=== PATIENT | female | born 1980 | race Caucasian/White ===

== ENCOUNTER 2020-08-08 17:47 | Outpatient (REF) | payer OTHER, SELFPAY ==
--- NOTE | 2020-08-08 | MR_ITS ---
EXAMINATION: MR BRAIN WITHOUT AND WITH CONTRAST CLINICAL INFORMATION: Demyelinating disease of PAINTER SPRAY. COMPARISON: Brain MRI 05/18/2019. TECHNIQUE: Multiplanar, multisequence imaging of the brain was performed before and after the intravenous administration of 10 mL of Gadavist. FINDINGS: There is no acute infarct, hemorrhage, mass, or extra-axial fluid collection. Minimal nonspecific T2 hyperintensity in the periventricular and left frontal deep white matter is unchanged. The corpus callosum and posterior fossa structures appear normal. No findings seen specific for demyelinating plaques. There is no abnormal intracranial enhancement. The ventricles are normal in size and configuration without evidence of hydrocephalus. The major arterial flow voids are preserved at the skull base. The orbital contents appear normal. The imaged portions of the upper cervical cord appear normal on the T2/FLAIR sequence. IMPRESSION: Stable exam compared with 05/18/2019. No findings identified specific for demyelinating plaques. No enhancing lesions.
== END 2020-08-08 17:48 | disposition home or self-care (01) ==
LOC: HO.MRI 17:47
PROVIDERS: Visit Provider Psychiatry & Neurology Neurology
DX: G37.9 Demyelinating disease of central nervous system, unspecified (principal)
CPT/HCPCS: 70553

== ENCOUNTER 2020-11-25 20:40 | Emergency (ER) | payer OTHER, SELFPAY | END 2020-11-25 21:44 | disposition left against medical advice (07) | LOC: HO.ED 21:44 | PROVIDERS: Emergency Provider Emergency Medicine; PCP Internal Medicine | DX: M54.9 Dorsalgia, unspecified (principal) ==

== ENCOUNTER 2021-07-11 11:18 | Outpatient (REF) | payer OTHER, SELFPAY ==
[2021-07-11 12:04] LABS: COVID-19 Test Negative (Negative)
== END 2021-07-11 11:19 | disposition home or self-care (01) ==
LOC: HO.LAB 11:18
PROVIDERS: PCP Internal Medicine; Visit Provider Internal Medicine
DX: Z20.822 Contact with and (suspected) exposure to COVID-19 (principal)
CPT/HCPCS: 36415; 87635; C9803

== ENCOUNTER 2021-10-16 14:52 | Outpatient (REF) | payer OTHER, SELFPAY | END 2021-10-16 14:53 | disposition home or self-care (01) | LOC: HO.LAB 14:52 | PROVIDERS: PCP Internal Medicine; Visit Provider Internal Medicine | DX: Z20.822 Contact with and (suspected) exposure to COVID-19 (principal) | CPT/HCPCS: C9803; U0003; U0005 ==

== ENCOUNTER 2021-12-22 13:25 | Outpatient (REF) | payer OTHER, MEDICAID, SELFPAY ==
--- NOTE | ~2021-12-22 | MR_ITS ---
MRI OF THE BRAIN WITHOUT IV CONTRAST INDICATION: Demyelinating disease. COMPARISON: Brain MRI 08/08/2020. TECHNIQUE: Multiplanar multisequence MR imaging of the brain was obtained without IV contrast. FINDINGS: There is no hydrocephalus, extra-axial surface collection, or herniation. A few small foci of nonspecific T2 signal change within the supratentorial white matter remain stable. The major flow voids at the skull base are preserved. There is no acute infarct on diffusion-weighted imaging. There is no intracranial hemorrhage on the gradient recalled echo acquisition. The midline structures are normal. The cerebellar tonsils are normally positioned. The cerebellum and brainstem are normal. The craniocervical junction is normal. Osseous marrow signal intensity is homogenous. The visualized soft tissues are unremarkable. MR/MR head/brain wo con IMPRESSION: A few small foci of nonspecific T2 signal change within the supratentorial white matter remain stable. Otherwise unremarkable noncontrast MRI of the brain.
== END 2021-12-22 13:26 | disposition home or self-care (01) ==
LOC: HO.MRI 13:25
PROVIDERS: Visit Provider Psychiatry & Neurology Neurology
DX: G43.909 Migraine, unspecified, not intractable, without status migrainosus (principal); G37.9 Demyelinating disease of central nervous system, unspecified
CPT/HCPCS: 70551

== ENCOUNTER 2024-01-10 09:35 | Emergency (ER) | payer OTHER, SELFPAY ==
--- NOTE | ~2024-01-10 | CT_ITS ---
EXAMINATION: CT ANGIOGRAM ABDOMEN AND PELVIS CLINICAL INFORMATION: 43-year-old female with abdominal pain and history of hematuria (renal blood clot). COMPARISON: Abdomen ultrasound from 10/17/2018. TECHNIQUE: Multiple axial images were obtained through the abdomen and pelvis following the administration of 80 mL of Omnipaque 350 intravenous contrast. The source images and multiplanar reformatted images were reviewed. Also, maximum intensity projection images were generated on the industrial technologist workstation and reviewed. However, no image postprocessing was performed on any separate independent workstations. There are no 3-dimensional images. This CT examination was performed using dose optimization techniques as appropriate, variously including the following: *Automated exposure control *Adjustment of mA and/or kV according to patient size (this includes techniques or standardized protocols for targeted exams where dose is matched to indication/reason for exam; i.e. extremities or head) *Use of iterative reconstruction technique DLP: 631 mGy-cm FINDINGS: LUNG BASES: No pulmonary consolidation or pleural effusion. A few micronodular opacities clustered in the lateral left lower lobe are likely sequela of prior inflammation of the small airways. HEPATOBILIARY: Liver has normal size and contour. There are attenuation differences between the right and left lobes of liver. The right hepatic artery is arising from the SMA whereas the arterial supply to the left lobe of liver appears to be via a branch of the left gastric artery. No evidence of liver mass. Gallbladder surgically absent. No dilated bile ducts. PANCREAS: No edema, pancreatic ductal dilatation or mass. SPLEEN: Normal. ADRENAL GLANDS: Normal. KIDNEYS AND URETERS: The kidneys enhance symmetrically and have normal size and cortical thickness. No perinephric fluid collection, urolithiasis or hydroureteronephrosis. BLADDER: Normal. No calculi or wall thickening. BOWEL AND PERITONEUM: Stomach, small bowel and colon are unremarkable. The appendix is surgically absent. No bowel wall edema or mucosal hyperenhancement. No mesenteric fat stranding, free fluid or free air. ABDOMINAL WALL: Unremarkable. VASCULATURE: Abdominal aorta is normal in caliber. The celiac trunk, SMA and KEVAN are widely patent. There are single right and left renal arteries arising from the aorta that are widely patent. No findings to suggest fibromuscular dysplasia, aneurysm or dissection. The common, external and internal iliac arteries are normal. LYMPH NODES: No pathologic sized lymph nodes in the abdomen or pelvis. No inguinal lymphadenopathy. PELVIC VISCERA: No uterine or adnexal mass. A contraceptive device is well centered within the endometrium. No pelvic free fluid. MUSCULOSKELETAL: No acute or suspicious osseous abnormality. Mild spondylosis of the visualized thoracolumbar spine. There is vacuum disc phenomenon and rorp-ia-[id number] disc space narrowing at L5-S1. CT/CT angio abdomen pelvis IMPRESSION: * No acute imaging abnormalities in the abdomen or pelvis. * Abdominal aorta and renal arteries are normal. * Urinary bladder is normal. * Kidneys are normal. No evidence of nephrolithiasis, hydronephrosis or renal mass.
[2024-01-10 10:06] VITALS: BP 148/91; PULSE 91; RESP 16; TEMP 36.6; O2SAT 98; BMI 39.4
[2024-01-10 10:27] LABS: MANUAL DIFF FLAG NO
[2024-01-10 10:37] LABS: Appearance Urine Cloudy; Color Urine Yellow; Glucose Urine UA Negative (Negative); Leukocyte Esterase Urine Trace (Negative); Nitrite Urine Negative (Negative); PH 6.5 (5.0-9.0); Specific Gravity - Urine 1.025 (1.005-1.025); UMIC TRIGGER UACC YES; Urine Blood Negative (Negative); Urine Ketones Trace mg/dL (Negative); Urine Protein Negative (Neg-Trace)
[2024-01-10 10:48] LABS: Bacteria Urine Trace (None Seen); Basophils Percent Auto 0.4 % (0-2); Eosinophils Absolute Auto 0.1 X10*3/uL (0.0-0.4); Eosinophils Percent Auto 1.5 % (0-4); Hematocrit 42.3 % (37.0-47.0); Hyaline Casts Urine 0-2 /LPF (0-2); Imm Gran Abs Auto 0.03 X10*3/uL (0.00-0.03); Imm Gran Pct Auto 0.4 % (0.0-0.4); Lymphocytes Absolute Auto 1.8 X10*3/uL (1.2-4.9); Lymphocytes Percent Auto 22.4 % (20-40); Mean Corpuscular HGB Conc 33.1 g/dl (31.0-35.0); Mean Corpuscular Hemoglobin 29.7 pg (27.0-33.0); Mean Corpuscular Volume 89.6 fL (80.0-98.0); Mean Platelet Volume 10.6 fL (9.4-12.3); Monocytes Absolute Auto 0.6 X10*3/uL (0.1-1.2); Monocytes Percent Auto 6.7 % (2-11); Neutrophils Absolute Auto 5.6 x10*3/uL (2.0-8.3); Neutrophils Percent Auto 68.6 % (45-73); Platelet Count 214 X10*3/uL (160-400); RBC Urine 0-2 /HPF (0-2); Red Blood Count 4.72 X10*6/uL (4.20-5.50); Red Cell Distribution Width 13.2 % (11.0-16.0); WBC Urine 0-5 /HPF (0-5); White Blood Count 8.2 X10*3/uL (4.8-10.8)
[2024-01-10 10:53] LABS: Alanine Aminotransferase 28 U/L (0-31); Albumin Level 3.7 g/dL (3.5-5.0); Alkaline Phosphatase 79 U/L (39-117); Anion Gap 12 (12-20); Aspartate Amino Transferase 18 U/L (5-31); Bilirubin Direct 0.2 mg/dL (0.0-0.5); Bilirubin Total 0.4 mg/dL (0.0-1.0); Blood Urea Nitrogen 10 mg/dL (9-16); Calcium 9.2 mg/dL (8.4-10.2); Carbon Dioxide 27 mmol/L (22-29); Chloride 109 mmol/L (96-108); Creatinine Clr Calc Pharmacy 108.7; Estimated Glomerular Filt Rate > 60; Glucose Random 99 mg/dL (60-115); Lipase 11 U/L (8-78); Potassium 5.1 mmol/L (3.3-5.1); Sodium 143 mmol/L (135-145); Total Protein 6.6 g/dL (6.5-8.0)
--- NOTE | 2024-01-10 13:07 | ED_ITS ---
HPI - General Adult General Chief complaint: Abdominal Pain Stated complaint: abd pain Time Seen by Provider: 01/10/24 13:04 Source: patient Mode of arrival: ambulatory Limitations: no limitations History of Present Illness HPI narrative: Patient is a 43 year old assigned female at with a history of kidney blood clots and factor 5, presenting to the emergency department today with abdominal pain radiating to her back. Patient states that over the last 3 days she has had epigastric pain that radiates into her back. Patient states that she is concerned it is related to her pancreas or another clot in her kidneys since she is no longer on anti-coagulant medications. Patient denies any dizziness, lightheadedness, nausea, vomiting, fever, chills, blurry vision, double vision, loss of vision, chest pain, difficulty breathing, shortness of breath, night sweats, pain with urination, increased urinary frequency, increased urinary urgency, blood in her urine or stool, syncope or a near syncopal episode, recent trauma or falls, bowel incontinence, bladder incontinence, bowel retention, bladder retention, or any other complaints at this time. Onset (ago): day(s) (3) Location: abdomen Radiation: back Severity: mild Severity scale (1-10): 3 Quality: aching and dull Pain Consistency: constant Relieving factors: none Exacerbating factors: none Associated symptoms: denies other symptoms Treatments prior to arrival: none Related Data Allergies Allergy/AdvReac Type Severity Reaction Status Date / Time dinoprostone [Dinoprostone] AdvReac Mild VOMITING Verified 01/10/24 10:05 Review of Systems 2 Constitutional: Constitutional: Reports no additional constitutional complaints, Denies chills, Denies fever(s) and Denies night sweats Eyes: Eyes: Reports no additional eye complaints, Denies blurry vision, Denies change in vision, Denies diplopia, Denies eye discharge, Denies loss of vision and Denies eye pain ENT: Denies dizziness Cardiovascular: Cardiovascular: Reports no additional cardiovascular complaints, Denies chest pain, Denies lightheadedness, Denies Loss of Consciousness and Denies dyspnea Respiratory: Respiratory: Reports no additional respiratory complaints and Denies dyspnea Gastrointestinal: Gastrointestinal: Reports no additional gastrointestinal complaints, Reports abdominal pain, Denies melena, Denies hematochezia, Denies change in bowel habits and Denies change in stool character Genitourinary: Genitourinary: Denies hematuria, Denies urinary frequency, Denies dysuria, Denies urinary incontinence, Denies urinary hesitancy and Denies urinary urgency Musculoskeletal: Musculoskeletal: Reports no additional musculoskeletal complaints, Reports back pain, Denies numbness and Denies tingling Neurologic: Denies dizziness, Denies loss of vision, Denies numbness and Denies tingling Psychiatric: Psychiatric: Reports no additional psychiatric complaints Endocrine: Endocrine: Reports no additional endocrine complaints Hematologic/Lymphatic: Hematologic/Lymphatic: Reports no additional hematologic/lymphatic complaints Allergic/Immunologic: Allergic/Immunologic: Reports no additional allergic/immunologic complaints FORMERLY [facility], [facility] Past Medical History Attestation statement: The following information was validated with the patient. Source: old records reviewed and nursing notes reviewed Social History Social History Smoked in Last 30 Days: No Use of substances other than those prescribed or required for medical reasons: No Advance Directives: No Advance Directives Information Provided: No Patient : No Physical Exam ED Vital Signs: Vital Signs - 24 hr 01/10/24 10:06 01/10/24 16:09 Temperature 97.8 F 98.1 F Pulse Rate 91 87 Respiratory Rate 16 14 Blood Pressure 148/91 H 120/78 Pulse Oximetry 98 96 Oxygen Delivery Method Room Air Room Air BMI result Body Mass Index 39.4 Const General: cooperative, no acute distress, alert and awake Nutritional Appearance: well nourished Orientation/consciousness: patient oriented x3 Limitations: no limitations HENMT Head: Yes normal to inspection and Yes atraumatic Ears: hearing grossly normal bilaterally and external ears normal General nose exam: Normal external nose present, no nasal discharge noted and no epistaxis Face and sinus: Yes normal facial exam, No abrasion and No laceration Mouth: Normal oral and palatal mucosa present, no drooling and no muffled voice Eyes General: appearance normal, both eyes and all related structures Periorbital: periorbital findings normal Eyelids: Yes eyelids normal Conjunctivae: conjunctivae normal Pupils: Equal, round and reactive pupils present EOM: EOMs intact bilaterally Neck Neck: Yes normal visual inspection, Yes full ROM and Yes no lymphadenopathy Chest Chest palpation & inspection: normal inspection of the chest Resp Effort & Inspection: normal respiratory effort and able to speak in complete sentences GI Inspection: Yes normal to inspection Palpation (GI): Soft to palpation, not firm, nontender, no guarding and not rigid Neuro General: patient oriented x3 and moves all extremities Cranial nerves: Yes Equal, round and reactive pupils present Cognition (Neuro): normal cognition Motor exam (neuro): 5/5 motor strength present throughout Sensory Exam: Normal double simultaneous stimulation for sensation Coordination: [id number] test normal Extrem General: Yes normal to inspection, Yes full ROM and Yes capillary refill normal Psych Appearance: grossly normal Mental Status: mental status grossly normal Affect: normal affect Attitude: cooperative Thought process: Normal thought process present Thought content: Normal thought content present Insight: Good insight present (Psych) Medications Administered Discontinued Medications Generic Name Dose Route Start Last Admin Trade Name Freq PRN Reason Stop Dose Admin Hydromorphone HCl 1 mg 01/10/24 13:11 01/10/24 14:46 Hydromorphone Hcl 1 Mg/Ml Syringe IVPUSH 01/10/24 13:12 1 mg ONCE ONE Administration Protocol Sodium Chloride 1,000 mls @ 999 mls/hr 01/10/24 13:15 01/10/24 15:50 Ns IV 01/10/24 14:15 Infused .Q1H1M CRISTINA Infusion Iohexol 100 ml 01/10/24 14:59 01/10/24 14:59 Iohexol 350 Mg/Ml 100 Ml Infus..Btl IV 01/10/24 15:00 80 ml ONCE ONE Administration Ondansetron HCl 4 mg 01/10/24 13:11 01/10/24 14:46 Ondansetron Hcl 4 Mg/2 Ml Vial IVPUSH 01/10/24 13:12 4 mg ONCE ONE Administration Pantoprazole Sodium 40 mg 01/10/24 13:11 01/10/24 14:45 Pantoprazole Sodium 40 Mg/10 Ml Vial IVPUSH 01/10/24 13:12 40 mg ONCE ONE Administration Medical Decision Making Medical Decision Making MDM Narrative: Patient is a 43 year old assigned female at with a history of factor 5 and kidney blood clots, presenting to the emergency department today with abdominal pain that radiates into the back. Patient's physical exam was unremarkable. Patient's blood work was unremarkable. Patient's urine showed a possible UTI however, the patient is not having symptoms consistent with a UTI. Will await culture before treatment. Patient's CTA abdomen pelvis showed no acute process. I explained my physical exam findings as well as all test results to the patient. I answered all questions asked by the patient. I stressed the importance of the patient taking her medication as prescribed. I stressed the importance of the patient following up with her primary care provider. I stressed the importance of the patient returning to the emergency department immediately if her symptoms were to worsen or if she were to develop any dizziness, shortness of breath, difficulty breathing, chest pain, blurry vision, loss of vision, nausea, vomiting, abdominal pain, fever, chills, back pain, or any other complaints. Patient verbalized agreement and understanding with this treatment plan and discharge. Differential Diagnosis Differential Diagnoses: The differential diagnosis associated with the presentation includes Abdominal pain Pancreatitis Kidney pain Admission/Observation Consideration of admission/observation: Escalation of care including admission/observation considered Patient would have been admitted to the hospital had her work up had any findings where hospital admission was appropriate and her clinical presentation warranted hospital admission. Lab Data [facility] Lab Attestation statement: I reviewed the patient's lab results. My interpretation of these results are in the [facility] Rationale portion of this note. 01/10/24 10:20 01/10/24 10:20 Labs: Lab Results 01/10/24 Range/Units 10:20 WBC 8.2 (4.8-10.8) X10*3/uL RBC 4.72 (4.20-5.50) X10*6/uL Hgb 14.0 (12.0-16.0) g/dl Hct 42.3 (37.0-47.0) % MCV 89.6 (80.0-98.0) fL MCH 29.7 (27.0-33.0) pg MCHC 33.1 (31.0-35.0) g/dl RDW 13.2 (11.0-16.0) % Plt Count 214 (160-400) X10*3/uL MPV 10.6 (9.4-12.3) fL Immature Gran % (Auto) 0.4 (0.0-0.4) % Neut % (Auto) 68.6 (45-73) % Lymph % (Auto) 22.4 (20-40) % Dooly % (Auto) 6.7 (2-11) % Eos % (Auto) 1.5 (0-4) % Baso % (Auto) 0.4 (0-2) % Lymph # (Auto) 1.8 (1.2-4.9) X10*3/uL [place]y # (Auto) 0.6 (0.1-1.2) X10*3/uL Eos # (Auto) 0.1 (0.0-0.4) X10*3/uL Baso # (Auto) 0.0 (0.0-0.2) X10*3/uL Abs Immat Gran (auto) 0.03 (0.00-0.03) X10*3/uL Absolute Neuts (auto) 5.6 (2.0-8.3) x10*3/uL Absolute Nucleated RBC 0.000 (0.0-0.012) X10*3/uL Nucleated RBC % (auto) 0.0 (0.0-0.2) /100WBC Sodium 143 (135-145) mmol/L Potassium 5.1 (3.3-5.1) mmol/L Chloride 109 H (96-108) mmol/L Carbon Dioxide 27 (22-29) mmol/L Anion Gap 12 (12-20) BUN 10 (9-16) mg/dL Creatinine 0.72 (0.5-1.4) mg/dL Estim Creat Clear Calc 108.7 Estimated GFR > 60 Random Glucose 99 (60-115) mg/dL Calcium 9.2 (8.4-10.2) mg/dL Total Bilirubin 0.4 (0.0-1.0) mg/dL Direct Bilirubin 0.2 (0.0-0.5) mg/dL AST 18 (5-31) U/L ALT 28 (0-31) U/L Alkaline Phosphatase 79 (39-117) U/L Total Protein 6.6 (6.5-8.0) g/dL Albumin 3.7 (3.5-5.0) g/dL Lipase 11 (8-78) U/L Urine Color Yellow Urine Appearance Cloudy Urine pH 6.5 (5.0-9.0) Ur Specific Keyser 1.025 (1.005-1.025) Urine Protein Negative (Neg-Trace) mg/dL Urine Glucose (UA) Negative (Negative) mg/dL Urine Ketones Trace (Negative) mg/dL Urine Blood Negative (Negative) Urine Nitrite Negative (Negative) Ur Leukocyte Esterase Trace H (Negative) Urine RBC 0-2 (0-2) /HPF Urine WBC 0-5 (0-5) /HPF Ur Squamous Epith Cells 11-20 (0-2) /HPF Urine Bacteria Trace (None Seen) Hyaline Casts 0-2 (0-2) /LPF Independent Interpretation I performed an independent interpretation of an: CT Scan Interpretation: My interpretation is in agreement with the radiologist's impression of this imaging study. - EXAMINATION: CT ANGIOGRAM ABDOMEN AND PELVIS CLINICAL INFORMATION: 43-year-old female with abdominal pain and history of hematuria (renal blood clot). COMPARISON: Abdomen ultrasound from 10/17/2018. TECHNIQUE: Multiple axial images were obtained through the abdomen and pelvis following the administration of 80 mL of Omnipaque 350 intravenous contrast. The source images and multiplanar reformatted images were reviewed. Also, maximum intensity projection images were generated on the soil technologist workstation and reviewed. However, no image postprocessing was performed on any separate independent workstations. There are no 3-dimensional images. This CT examination was performed using dose optimization techniques as appropriate, variously including the following: *Automated exposure control *Adjustment of mA and/or kV according to patient size (this includes techniques or standardized protocols for targeted exams where dose is matched to indication/reason for exam; i.e. extremities or head) *Use of iterative reconstruction technique DLP: 631 mGy-cm FINDINGS: LUNG BASES: No pulmonary consolidation or pleural effusion. A few micronodular opacities clustered in the lateral left lower lobe are likely sequela of prior inflammation of the small airways. HEPATOBILIARY: Liver has normal size and contour. There are attenuation differences between the right and left lobes of liver. The right hepatic artery is arising from the SMA whereas the arterial supply to the left lobe of liver appears to be via a branch of the left gastric artery. No evidence of liver mass. Gallbladder surgically absent. No dilated bile ducts. PANCREAS: No edema, pancreatic ductal dilatation or mass. SPLEEN: Normal. ADRENAL GLANDS: Normal. KIDNEYS AND URETERS: The kidneys enhance symmetrically and have normal size and cortical thickness. No perinephric fluid collection, urolithiasis or hydroureteronephrosis. BLADDER: Normal. No calculi or wall thickening. BOWEL AND PERITONEUM: Stomach, small bowel and colon are unremarkable. The appendix is surgically absent. No bowel wall edema or mucosal hyperenhancement. No mesenteric fat stranding, free fluid or free air. ABDOMINAL WALL: Unremarkable. VASCULATURE: Abdominal aorta is normal in caliber. The celiac trunk, SMA and KEVAN are widely patent. There are single right and left renal arteries arising from the aorta that are widely patent. No findings to suggest fibromuscular dysplasia, aneurysm or dissection. The common, external and internal iliac arteries are normal. LYMPH NODES: No pathologic sized lymph nodes in the abdomen or pelvis. No inguinal lymphadenopathy. PELVIC VISCERA: No uterine or adnexal mass. A contraceptive device is well centered within the endometrium. No pelvic free fluid. MUSCULOSKELETAL: No acute or suspicious osseous abnormality. Mild spondylosis of the visualized thoracolumbar spine. There is vacuum disc phenomenon and [id number] disc space narrowing at L5-S1. CT/CT angio abdomen pelvis IMPRESSION: * No acute imaging abnormalities in the abdomen or pelvis. * Abdominal aorta and renal arteries are normal. * Urinary bladder is normal. * Kidneys are normal. No evidence of nephrolithiasis, hydronephrosis or renal mass. Dictated By: Sarthak Miranda MD Signed By: Electronically signed by Sarthak Miranda MD 01/10/24 [id number] Radiology Impression Discussion of test interpretation with radiology: I have reviewed the radiologist's reading. Critical Care Time Critical Care Time Critical Care Time: Yes Total Critical Care Time: 45 Attestation: I spent 45 minutes of Critical Care Time with this patient. This does not include time spent on separately reported billable procedures. Discharge Plan Discharge Clinical Impression: Abdominal pain Patient Disposition: Home, Self-Care Instructions: Abdominal Pain (ED) Additional Instructions: Follow up with your primary care provider and your GI specialist. Return to the emergency department immediately if your symptoms worsen or if you develop any dizziness, shortness of breath, difficulty breathing, chest pain, blurry vision, loss of vision, nausea, vomiting, abdominal pain, fever, chills, back pain, or any other complaints. Referrals: Nora Gomze MD [Primary Care Provider] - Stand Alone Forms: Work/School Release Interventions: ED Discharge Assessment Last Done: 01/10/24 16:42 Print Language: Maori
[2024-01-10] MEDS: Pantoprazole Sodium 40 MG/10 ML VIAL IVPUSH (14:45)
[2024-01-10] MEDS: HYDROmorphone HCl 1 MG/ML SYRINGE IVPUSH (14:46)
[2024-01-10] MEDS: ondansetron HCL 4 MG/2 ML VIAL IVPUSH (14:46)
[2024-01-10] MEDS: 0.9 % Sodium Chloride 1,000 ML 999 ML IV (14:47)
[2024-01-10] MEDS: iohexoL 350 MG/ML 100 ML INFUS..BTL IV (14:59)
[2024-01-10 16:09] VITALS: BP 120/78; PULSE 87; RESP 14; TEMP 36.7; O2SAT 96
== END 2024-01-10 16:43 | disposition home or self-care (01) ==
PROVIDERS: Emergency Provider Emergency Medicine; PCP Internal Medicine
DX: R10.9 Unspecified abdominal pain (principal); D68.51 Activated protein C resistance; Z86.718 Personal history of other venous thrombosis and embolism
CPT/HCPCS: 36415; 74174; 80048; 80076; 81001; 83690; 85025; 96361; 96374; 96375; 99284; C9113; J1170; J2405; Q9967

== ENCOUNTER 2024-03-14 13:24 | Outpatient (REF) | payer OTHER, SELFPAY ==
--- NOTE | 2024-03-14 12:51 | EEG_ITS ---
FINDINGS: Waking background activity consists of low-voltage fast frequencies seen diffusely intermixed with low to moderate voltage posterior 10 hertz alpha frequency that is seen symmetrically and attenuates well with eye opening. Photic stimulation and hyperventilation are without activation. No sleep stages are identified. No focal, lateralizing, or paroxysmal discharges seen. IMPRESSION: This waking EEG is within normal limits. MD GRACIE Locke/BRO / [id number]
== END 2024-03-14 13:25 | disposition home or self-care (01) ==
LOC: HO.NEURO 13:24
PROVIDERS: PCP Internal Medicine; Visit Provider Psychiatry & Neurology Neurology
DX: G40.209 Localization-related (focal) (partial) symptomatic epilepsy and epileptic syndromes with complex partial seizures, not intractable, without status epilepticus (principal)
CPT/HCPCS: 95816

== ENCOUNTER 2025-05-14 08:43 | Outpatient (AMB) | payer OTHER, SELFPAY ==
--- OUTSIDE RECORDS SUMMARY | 2025-05-14 08:48 | XMS_ITS | Clinical Summary ---
Author Organization [facility] Address [address] [place] [id number] Care Team Providers Care Cell Tender Name Role Phone Nora Gomez MD Primary Care Provider [phone] Allergies No known active allergies Medications Medication Sig Dispensed Refills Start Date End Date Status escitalopram (LEXAPRO) 20 MG tablet Take 20 mg by mouth daily. 0 Active lisinopril (PRINIVIL,ZESTRIL) tablet 10 mg Take 10 mg by mouth daily. 0 Active omeprazole (PriLOSEC) 20 MG capsule Take 20 mg by mouth daily. 0 Active levonorgestrel (MIRENA) 20 MCG/24HR IUD 1 each by Intrauterine route once. 0 Active apixaban (Eliquis) 5 MG TABS tablet Take 1 tablet (5 mg total) by mouth every 12 (twelve) hours. 60 tablet 11 12/02/2021 Active Active Problems No known active problems Family History Medical History Relation Name Comments Clotting disorder Brother 1 Clotting disorder Brother 2 Clotting disorder Mother Relation Name Status Comments Brother 1 Brother 2 Mother Social History Tobacco Use Types Packs/Day Years Used Date Smoking Tobacco: Never Smokeless Tobacco: Never Alcohol Use Standard Drinks/Week Comments No 0 (1 standard drink = 0.6 oz pur e alcohol) Sex and Gender Information Value Date Recorded Sex Assigned at Not on file Gender Identity Not on file Sexual Orientation Not on file Job Start Date Occupation Industry Not on file Not on file Not on file Last Filed Vital Signs Vital Sign Reading Time Taken Comments Blood Pressure 143/85 11/24/2022 9:57 AM EST Pulse 85 11/24/2022 9:57 AM EST Temperature 36.9 C (98.5 F) 11/24/2022 9:57 AM EST Respiratory Rate - - Oxygen Saturation 98% 11/24/2022 9:57 AM EST Inhaled Oxygen Concentration - - Weight 100.2 kg (221 lb) 11/24/2022 9:57 AM EST Height 157.5 cm (5' 2 ) 11/24/2022 9:57 AM EST Body Mass Index 40.42 11/24/2022 9:57 AM EST Plan of Treatment Health Maintenance Due Date Last Done Comments Hepatitis B Vaccines (1 of 3 - 3-dose series) 1979 Hepatitis C Screening 1979 Depression Screening 1991 BMI Counseling 1997 Preventative Health Evaluation 1997 Cervical Cancer Screening (Pap Smear) 2000 COVID-19 Vaccine ( season) 2024 11/27/2020, 11/06/2020 Colon Cancer Screening (Colonoscopy) 2024 Influenza Vaccine (#1) 2025 , 07/28/2020, 08/08/2018, Additional history exists DTap / Tdap / Td (4 - Td or Tdap) 09/13/2027 09/13/2017, 05/05/2017, 05/05/2007 Pneumococcal Vaccine Aged Out No long er eligible based on patient's age to complete this topic RSV Ped < 20 months Aged Out No longe r eligible based on patient's age to complete this topic Insurance Payer Benefit Plan / Group Subscriber ID Effective Dates Phone Address [facility] [id number] 2017-Pres ent [address] [facility] [address] [place] [address] [facility] [place] [facility] MEDICAID [facility] [id number] 2018-Pres e nt [address] [place] [address] Medicaid Care Teams Cell Tender Relationship Specialty Start Date End Date Nora Gomez MD PCP - General Internal Medicine 05/26/18
--- OUTSIDE RECORDS SUMMARY | 2025-05-14 08:48 | XMS_ITS | Clinical Summary ---
Author Organization [address] Address [address] [place] [phone] Phone Care Team Providers Care Supervisor [employer] Name Role Phone Nora Gomez MD Primary Care Provider [phone] Allergies Active Allergy Reactions Criticality Noted Date Comments Dinoprostone Swelling 05/17/2006 Medications cloNIDine (CATAPRES) 0.1 mg tablet Take 0.5 tablets (0.05 mg total) by mouth. 024 Active levonorgestreL (MIRENA) 21 mcg/24 hours (8 yrs) 52 mg IUD 1 Device (1 each total) by intrauterine route. Active Wegovy 0.25 mg/0.5 mL injection pen PINA CERDA 025 Active albuterol HFA (PROAIR HFA ; PROVENTIL HFA ; VENTOLIN HFA) 90 mcg/actuation inhaler INHALE 2 PUFFS EVERY 4 TO 6 HOURS NEEDED FOR SHORTNESS OF BREATH OR FOR WHEEZE 025 Active omeprazole (PriLOSEC) [address] capsule Take 1 capsule (20 mg total) by mouth 1 (one) time each day before breakfast. 90 capsule 1 025 Active escitalopram (LEXAPRO) 20 mg tablet Take 1 tablet (20 mg total) by mouth 1 (one) time each day. 90 tablet 1 025 Active lisinopriL (PRINIVIL,ZESTRIL ) 5 mg tablet Take 1 tablet (5 mg total) by mouth at bedtime. 90 tablet 1 Active atorvastatin (LIPITOR) 10 mg tablet Take 1 tablet (10 mg total) by mouth 1 (one) time each day. 90 each 1 025 2024 Active apixaban (ELIQUIS) 2.5 mg tablet Take 1 tablet (2.5 mg total) by mouth 2 (two) times a day. 60 tablet 3 Active apixaban (ELIQUIS) 5 mg tablet Take 1 tablet (5 mg total) by mouth 2 (two) times a day. 2024 Discontinued omeprazole (PriLOSEC) [address] capsule Take 1 capsule (20 mg total) by mouth 1 (one) time each day before breakfast. 90 capsule 025 2024 Discontinued(R eorder) ondansetron ODT (ZOFRAN-ODT) 4 mg disintegrating tablet Take 1 tablet (4 mg total) by mouth every 6 (six) hours if needed. for nausea; SAMI MULTANI 025 2024 Discontinued escitalopram (LEXAPRO) 20 mg tablet Take 1 tablet (20 mg total) by mouth 1 (one) time each day. 90 tablet 025 2024 Discontinued(R eorder) lisinopriL (PRINIVIL,ZESTRIL ) 5 mg tablet Take 1 tablet (5 mg total) by mouth at bedtime. 90 tablet 025 2024 Discontinued(R eorder) Active Problems Problem Noted Date Diagnosed Date Other hyperlipidemia 05/01/2025 Anxiety and depression 02/22/2025 Bilateral carpal tunnel syndrome 07/10/2022 Overview (04/18/2025): Last Assessment & Plan: Patient is describing bilateral forearm and first through third digit numbness tingling, aching that wakes her up at night, equally bilaterally. She states it happens every night, does not have any previous diagnosis for carpal tunnel syndrome. She has not had any conservative treatments for this. No recent EMG/NCS study. She thinks she may have a wrist splint at home from the past, will try using it at night while sleeping to see if it improves her symptoms. Patient's neurologist is Dr. Fernandez. We will schedule the EMG through his office to rule out bilateral carpal tunnel syndrome. I am sending her to PT for her neck and carpal tunnel symptoms. I will call her with the results once EMG completed. Cervical spondylosis 07/10/2022 Overview (04/18/2025): Patient is s/p C5-6, C6-[address] Forte 02/04/2017 and s/p left C7-T1 microforaminotomies discectomy June [address] Ballesteros. She states approximately 1 month ago she began noticing pain in the posterior neck, pain in the left lower intrascapular region, right lateral neck. She has pain radiating to the right shoulder down the arm >into the first through third digits. She has not been dropping things, noticing any weakness, difficulty with walking or balance/falls. There is no inciting event, symptoms have slowly been worsening with time. She rates her average daily pain 3-7/10 for her neck and right arm pain. No radicular pain from the neck down into the left arm. She also has history of left trigeminal neuralgia, symptoms are mild, she had to come off Trileptal when she started Eliquis for her renal thrombosis. Patient has not had any recent cervical films, she will go today for C-spine x- rays. I gave her a prescription to try physical therapy. If she is not seeing improvement with time she will likely need an updated C-spine MRI. I will call her with the results once completed. She will call with any concerns or questions. All questions answered on today's visit. Chronic low back pain 07/02/2022 Overview (04/18/2025): Receiving cortisone injection via Dr. 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 Singleton, 12/30/21) COVID-19 virus infection 10/04/2020 Essential hypertension 08/14/2020 Demyelinating disease of guru tral nervous system, unspecified ([facility] V24, [facility] V28) 08/12/2020 Optic neuritis 05/10/2019 Venous insufficiency of both lower extremities 0 02/09/2019 Prothrombin gene mutation ([facility] V24) 08/17/20 18 Overview (04/18/2025): . s/p left renal vein thrombosis; continue Eliquis 5mg BID x 6 months, then 2.5mg BID indefinitely (Dr. Singleton, 12/30/21) Snoring 07/13/2018 Overview (04/18/2025): 07/2018 Home Sleep Study did not reveal sleep apnea. Cervical disc herniation 05/12/2018 Overview (04/18/2025): January 2017: C5/C6 and C6/C7 fusion (Dr. Forte) GERD (gastroesophageal reflux disease) 4 Abnormal Papanicolaou smear of cervix with positive human papilloma virus (HPV) test 04/23/2014 Overview (04/18/2025): Colposcopy 05/11/14 - ECC - neg; Cx Bx @ 6 - no dysplasia, repeat co-testing 12 months. Depression, major, recurrent ([facility] V24) 01/26 Migraine 05/25/2006 Overview (04/18/2025): Dr. Fernandez Other chronic sinusitis 05/25/2006 Resolved Problems Problem Noted Date Diagnosed Date Resolved Date Numbness 11/21/2018 05/01/2025 Overview (04/18/2025): Left sided body numbness, sees neurology Encounters Date Type Department Care Team Description 05/07/2025 10:31 AM EDT - 05/07/2025 11:59 PM EDT Hospital Encounter Radiology Department - [address] [phone] Vision loss of left eye; TIA (transient ischemic attack) Discharge Disposition: Home or Self Care 05/02/2025 Telephone [facility] Hematology Oncology [address] [place] [address] Lina Singleton MD 05/01/2025 8:45 AM EDT Office Visit Adult Medicine [address] [phone] Nora Gomez MD Vision loss of left eye (Primary Dx); Essential hypertension; TIA (transient ischemic attack); Prothrombin gene mutation (CMS/HCC V24); Demyelinating disease of central nervous system, unspecified (CMS/HCC V24, CMS/HCC V28); Other hyperlipidemia 02/23/2025 Telephone Adult Medicine [address] [phone] Nora Gomez MD EXTERNAL ORDER (ECHO) 02/21/2025 Telephone [facility] [address] [place] [phone] Nora Gomez MD from Last 3 Months Immunizations Name Administration Dates Next Due Influenza trivalent, with pr eservative (Fluzone; Afluria) 6mo and older 09/10/2021,07/28/2020,10/12/2017 [employer] SARS-CoV-2 COVID-19, mRNA, LNP-S, preservative free 11/27/2020,11/06/2020 Tdap Tetanus diptheria acell ular pertussis (Boostrix; Adacel) 7yo and older 09/13/2017,05/05/2017,05/05/2007 Surgical History Surgery Date Site/Laterality Comments OTHER SURGICAL HISTORY EXCISION NASAL POLYP SIMPLE SINUS SURGERY CERVICAL LAMINECTOMY 02/04/2017 C5-6, C6-7 ACDF, Dr. Forte CHOLECYSTECTOMY 11/26/2018 APPENDECTOMY OTHER SURGICAL HISTORY 06/2020 Left C7-T1 microforaminotomies discectomy, Dr. Ballesteros COLONOSCOPY 01/2024 Medical History Medical History Date Comments Other chronic sinusitis Abnormal cervical Pap smear with positive HPV DNA test 04/23/2014 GERD (gastroesophageal reflux disease) 4 Factor V deficiency ([facility] V24, [facility] V28) 08/17/2018 Asymptomatic, her brother wa s also labeled with the coagulopathy. Gallstones 10/19/2018 Anxiety 05/25/2006 Cervical disc herniation 02/04/2017 : C5-6, C6-7 anterior discectomy and fusion (Dr. Forte) Depression, major, recurrent ([facility] V24) 01/26/2014 Migraine 05/25/2006 Dr. Fernandez Obesity (BMI 30-39.9) 01/21/2018 Snoring 07/13/201807/2018 Home Slee p Study did not reveal sleep apnea. 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, [facility] V28) 12/23/2020 : x2, Left, on eliquis HTN (hypertension) Trigeminal neuralgia left Family history of ovarian cancer 05/03/2024 : Pt BRCA negative Family History Medical History Relation Name Comments Diabetes Aunt 1 maternal stroke (50s) Ovarian cancer Aunt 2 paternal Diabetes Brother x 2 HTN, HLD, DVT d /t factor V mutation Heart attack Father Hypertension Mother heart valve rep lacement, factor V mutation, COPD Breast cancer Mother's side 1 1st cousin unilateral Other: Thyroid cancer Mother's side 2 1st cousin Relation Name Status Comments Aunt 1 maternal Alive Aunt 2 paternal Alive Brother x 2 Alive Father Maternal Grandfather Maternal Grandmother Mother Alive Mother's side 1 1st cousin Alive Mother's side 2 1st cousin Alive Paternal Grandfather Paternal Grandmother Social History Tobacco Use Types Packs/Day Years Used Date Smoking Tobacco: Never Smokeless Tobacco: Never Tobacco Cessation:Counseling Given: Not Answered Alcohol Use Standard Drinks/Week Comments Yes 0 (1 standard drink = 0.6 oz pur e alcohol) Comments Unknown Sex and Gender Information Value Date Recorded Sex Assigned at Female 05/09/2025 10:42 AM EDT Legal Sex Female 4:01 PM EST Gender Identity Female 05/09/2025 10:42 AM EDT Sexual Orientation Straight 05/09/2025 10 :42 AM EDT Obstetrics History Last Filed Vital Signs Vital Sign Reading Time Taken Comments Blood Pressure 126/84 05/01/2025 8:51 AM EDT Pulse 93 05/01/2025 8:26 AM EDT Temperature 35.8 C (96.5 F) 05/01/2025 8:26 AM EDT Respiratory Rate 16 05/01/2025 8:26 AM EDT Oxygen Saturation 100% 12/04/2024 9:37 AM EST Inhaled Oxygen Concentration - - Weight 95.7 kg (211 lb) 05/01/2025 8:26 AM EDT Height 157.5 cm (5' 2 ) 05/01/2025 8:26 AM EDT Body Mass Index 38.59 05/01/2025 8:26 AM EDT Plan of Treatment Upcoming Encounters Date Type Department Care Team (Late st Contact Info) Description 05/31/2025 5:00 PM EDT Appointment [facility] CT Scan [address] [place] [phone] 11/05/2025 9:30 AM EST Office Visit Adult Medicine [facility] [address] [place] [phone] Krissy Del Toro PA [address] [place] [address] Health Maintenance Due Date Last Done Comments Hepatitis B Vaccines (1 of 3 - 19+ 3-dose series) 1998 Depression Screening 10/10/2022 Hepatitis C Screening 10/10/2022 Social Influencers of Health Screening 10/10/2022 COVID-19 Vaccine (3 - 2023-2 5 season) 2024 11/27/2020, 11/06/2020 Colorectal Cancer Screening: Colonoscopy 01/31/2025 02/01/2024 Influenza Vaccine (#1) 2025 , 07/28/2020, 10/12/2017 Hypertension/CHF/CAD Annual BMP Blood Test 03/12/2026 03/12/2025 Cervical Cancer Screening: P ap Smear 11/09/2026 11/09/2023, 11/09/2023, 05/09/2019 Breast Cancer Screening 01/11/2027 01/11/2025 DTaP,Tdap,and Td Vaccines (4 - Td or Tdap) 09/13/2027 09/13/2017, 05/05/2017, 05/05/2007 Cholesterol Screening (Lipid Panel) 03/12/2030 03/12/2025, 04/28/2023 HIV Screening Completed 04/28/2023 HIB Vaccines Aged Out No longer eligi ble based on patient's age to complete this topic HPV Vaccines Aged Out No longer eligi ble based on patient's age to complete this topic Hepatitis A Vaccines Aged Out No long er eligible based on patient's age to complete this topic IPV Vaccines Aged Out No longer eligi ble based on patient's age to complete this topic MMR Vaccines Aged Out No longer eligi ble based on patient's age to complete this topic Meningococcal ACWY Vaccine Aged Out N o longer eligible based on patient's age to complete this topic Meningococcal B Vaccine Aged Out No l onger eligible based on patient's age to complete this topic Pneumococcal Vaccine: Pediatrics (0 to 5 Years) and At-Risk Patients (6 to 49 Years) Aged Out No longer eligible b ased on patient's age to complete this topic RSV Immunization Patients Under 20 months Aged Out No longer eligible b ased on patient's age to complete this topic Varicella Vaccines Aged Out No longer eligible based on patient's age to complete this topic Procedures Procedure Name Priority Date/Time Associated Diagnosis Comments VAS US DUPLEX CAROTID BILATERAL Routine 05/07/2025 10:51 AM EDT Vision loss of left eye TIA (transient ischemic attack) ECHO 04/19/2025 CBC WITH AUTO DIFFERENTIAL Routine 03/12/2025 1:15 PM EDT Gastroesophageal reflux disease, unspecified whether esophagitis present Essential hypertension Severe episode of recurrent major depressive disorder, without psychotic features (CMS/HCC V24, CMS/HCC V28) Colon cancer screening Elevated random blood glucose level HEMOGLOBIN A1C Routine 03/12/2025 1:15 PM EDT Elevated random blood glucose level CBC AND DIFFERENTIAL Routine 03/12/2025 1:15 PM EDT Gastroesophageal reflux disease, unspecified whether esophagitis present Essential hypertension Severe episode of recurrent major depressive disorder, without psychotic features (CMS/HCC V24, CMS/HCC V28) Colon cancer screening Elevated random blood glucose level COMPREHENSIVE METABOLIC PANEL Routine 03/12/2025 1:15 PM EDT Gastroesophageal reflux disease, unspecified whether esophagitis present Essential hypertension Severe episode of recurrent major depressive disorder, without psychotic features (CMS/HCC V24, CMS/HCC V28) Colon cancer screening Elevated random blood glucose level LIPID PANEL WITH REFLEX TO DIRECT LDL Routine 03/12/2025 1:15 PM EDT Lipid screening EXTERNAL MAMMOGRAM REPORT 01/11/2025 PAP SMEAR Routine 11/09/2023 from Last 3 Months or Most Recently Relevant to Health Maintenance Results * Vascular US duplex carotid bilateral (05/07/2025 10:51 AM EDT) Anatomical Region Laterality Modality Vascular, Abdomen Ultrasound 05/07/2025 4:23 PM EDT Impressions 05/07/2025 4:40 PM EDT Elevated ICA end diastolic velocity on the left without additional abnormal parameters to indicate a moderate degree of stenosis. Recommend CTA for further evaluation. No evidence of right internal carotid stenosis. Patent vertebral arteries. POS - [id number] -------- FINAL REPORT -------- Dictated By: Clau San Dictated Date: 05/07/2025 16:23 ET Assigned Physician: Clau San Reviewed and Electronically Signed By: Clau San Signed Date: 05/07/2025 16:40 ET Workstation ID: [id number] Transcribed By: Self Edit Transcribed Date: 05/07/2025 16:23 ET Narrative 05/07/2025 4:40 PM EDT EXAM: Ultrasound extracranial arteries. HISTORY: TIA. Episode of vision loss in left eye. COMPARISON: None CAROTID ULTRASOUND FINDINGS: RIGHT: Peak external carotid artery: 125 cm/sec Peak vertebral: 77 cm/sec and antegrade Carotid artery morphology: No plaquing detected. No diameter reduction with grayscale and color Doppler. Peak systolic and diastolic velocity common carotid artery: 123/33 cm/sec Peak systolic and diastolic velocity internal carotid artery: 130/39 cm/sec Normal ICA/CCA peak systolic ratio. LEFT: Peak external carotid artery: 80 cm/sec Peak vertebral: 66 cm/sec and antegrade Carotid artery morphology: No plaquing detected. No diameter reduction with grayscale and color Doppler. Peak systolic and diastolic velocity common carotid artery: 138/33 cm/sec Peak systolic and diastolic velocity internal carotid artery: 131/79 cm/sec Normal ICA/CCA peak systolic ratio. Any stenosis measurement is relative to the distal ICA diameters. Procedure Note Clau San MD - 05/07/2025 EXAM: Ultrasound extracranial arteries. HISTORY: TIA. Episode of vision loss in left eye. COMPARISON: None CAROTID ULTRASOUND FINDINGS: RIGHT: Peak external carotid artery: 125 cm/sec Peak vertebral: 77 cm/sec and antegrade Carotid artery morphology: No plaquing detected. No diameter reductionwith grayscale and color Doppler. Peak systolic and diastolic velocity common carotid artery: 123/33cm/sec Peak systolic and diastolic velocity internal carotid artery: 130/39cm/sec Normal ICA/CCA peak systolic ratio. LEFT: Peak external carotid artery: 80 cm/sec Peak vertebral: 66 cm/sec and antegrade Carotid artery morphology: No plaquing detected. No diameter reductionwith grayscale and color Doppler. Peak systolic and diastolic velocity common carotid artery: 138/33cm/sec Peak systolic and diastolic velocity internal carotid artery: 131/79cm/sec Normal ICA/CCA peak systolic ratio. Any stenosis measurement is relative to the distal ICA diameters. IMPRESSION: Elevated ICA end diastolic velocity on the left without additionalabnormal parameters to indicate a moderate degree of stenosis. RecommendCTA for further evaluation. No evidence of right internal carotidstenosis. Patent vertebral arteries. POS - [id number] -------- FINAL REPORT -------- Dictated By: Clau San Dictated Date: 05/07/2025 16:23 ET Assigned Physician: Clau San Reviewed and Electronically Signed By: Clau San Signed Date: 05/07/2025 16:40 ET Workstation ID: [id number] Transcribed By: Self Edit Transcribed Date: 05/07/2025 16:23 ET us Nora Gomez MD CV VASCULAR PROCEDURES Final Res ult * Echo (04/19/2025) Anatomical Region Laterality Modality Other us Provider [facility] CV HISTORICAL CONV PROCE DURES Final Result * (ABNORMAL) Lipid panel with reflex to direct LDL (03/12/2025 1:15 PM EDT) Cholesterol 208(H) 0 - 200 mg/dL LAB CHEMISTRY METHOD 03/12/2025 6:15 PM EDT [facility] Triglycerides 117 0 - 150 mg/dL LAB CHEMISTRY METHOD 03/12/2025 6:15 PM EDT [facility] HDL 58 >=40 mg/dL LAB CHEMISTRY METHOD 03/12/2025 6:15 PM EDT [facility] LDL Calculated 127(H) 0 - 100 mg/dL LAB CHEMISTRY METHOD 03/12/2025 6:15 PM EDT [facility] VLDL Cholesterol Sergio 23.4 mg/dL LAB CHEMISTRY METHOD 03/12/2025 6:15 PM EDT [facility] Non HDL Chol. (LDL+VLDL) 150(H) <145 mg/dL LAB CHEMISTRY METHOD 03/12/2025 6:15 PM EDT [facility] Chol/HDL Ratio 3.6 0.0 - 4.4 LAB CHEMISTRY METHOD 03/12/2025 6:15 PM EDT [facility] Blood Venous blood specimen / Unknown Venipuncture / Unknown 03/12/2025 1:15 PM EDT 03/12/2025 1:15 PM EDT us Krissy PERALTA LAB BLOOD ORDERABLES Final Re sult [facility] [address] [place] [address], [place] [phone] * (ABNORMAL) CBC auto differential (03/12/2025 1:15 PM EDT) [facility] WBC 9.0 4.8 - 10.8 K/mcL LAB HEMETOLOGY [facility] RBC 4.80 3.80 - 4.80 M/mcL LAB HEMETOLOGY METHOD 03/12[facility]2025 6:[facility] Hemoglobin 14.5 11.5 - 16.0 g/dL LAB HEMETOLOGY METHOD 03/12/2025 6:09 PM [facility] Hematocrit 43.9 35.0 - 47.0 % LAB HEMETOLOGY METHOD 03/12/2025 6:09 PM [facility] MCV 92.2 79.0 - 98.0 FL LAB HEMETOLOGY METHOD 03/12/2025 6:[facility] MCH 30.5 27.0 - 32.0 pcg LAB HEMETOLOGY METHOD 03/12/2025 6:09 PM [facility] MCHC 33.0 32.0 - 37.0 g/dL LAB HEMETOLOGY METHOD 03/12/2025 6:09 PM [facility] RDW 13.2 11.0 - 15.0 % LAB HEMETOLOGY METHOD 03/12/2025 6:09 PM [facility] Platelets 227 130 - 400 K/mcL LAB HEMETOLOGY METHOD 03/12/2025 6:09 PM [facility] MPV 11.4(H) 7.0 - 11.0 FL LAB HEMETOLOGY METHOD 03/12/2025 6:09 PM [facility] NRBC 0.0 <1.0 % LAB HEMETOLOGY METHOD 03/12/2025 6:[facility] NRBC Absolute 0.00 <0.10 K/mcL LAB HEMETOLOGY METHOD 03/12/2025 6:09 PM [facility] Neutrophils Relative 70.8 % LAB HEMETOLOGY METHOD 03/12/2025 6:09 PM [facility] Lymphocytes Relative 19.7 % LAB HEMETOLOGY METHOD 03/12/2025 6:09 PM [facility] Monocytes Relative 4.8 % LAB HEMETOLOGY METHOD 03/12/2025 6:09 PM [facility] Eosinophils Relative 3.8 % LAB HEMETOLOGY METHOD 03/12/2025 6:09 PM [facility] Basophils Relative 0.7 % LAB HEMETOLOGY METHOD 03/12/2025 6:09 PM [facility] Immature Granulocytes Relative 0.2 % LAB HEMETOLOGY METHOD 03/12/2025 6:09 PM [facility] Neutrophils Absolute 6.34 1.50 - 7.00 K/mcL LAB HEMETOLOGY METHOD 03/12/2025 6:09 PM [facility] Lymphocytes Absolute 1.76 1.00 - 5.00 K/mcL LAB HEMETOLOGY METHOD 03/12/2025 6:09 PM [facility] Monocytes Absolute 0.43 0.20 - 1.00 K/mcL LAB HEMETOLOGY METHOD 03/12/2025 6:09 PM [facility] Eosinophils Absolute 0.34 0.00 - 0.50 K/mcL LAB HEMETOLOGY METHOD 03/12/2025 6:09 PM [facility] Basophils Absolute 0.06 0.00 - 0.20 K/mcL LAB HEMETOLOGY METHOD 03/12/2025 6:09 PM [facility] Immature Granulocytes Absolute 0.02 0.00 - 0.03 K/mcL LAB HEMETOLOGY METHOD 03/12/2025 6:09 PM EDT [facility] Blood Venous blood specimen / Unknown Venipuncture / Unknown 03/12/2025 1:15 PM EDT 03/12/2025 1:15 PM EDT us Krissy PERALTA LAB BLOOD ORDERABLES Final Re sult Performing Organization Address City/[facility]/ZIP Co de Phone Number [facility] [address] [place] [address], [place] [phone] * Hemoglobin A1c (03/12/2025 1:15 PM EDT) Pathologist [facility] Hemoglobin A1C 5.3 <6.5 % LAB CHEMISTRY METHOD 03/12/2025 10:21 PM EDT [facility] Mean Bld Glu Estim. 105 mg/dL LAB CHEMISTRY METHOD 03/12/2025 10:21 PM EDT [facility] Blood Venous blood specimen / Unknown Venipuncture / Unknown 03/12/2025 1:15 PM EDT 03/12/2025 1:15 PM EDT us Krissy PERALTA LAB BLOOD ORDERABLES Final Re sult Performing Organization Address City/[facility]/ZIP Co de Phone Number [facility] [address] [place] [address], [place] [phone] * Comprehensive metabolic panel (03/12/2025 1:15 PM EDT) [facility] Sodium 139 133 - 145 mmol/L LAB CHEMISTRY METHOD 03/12/2025 6:15 PM EDT [facility] Potassium 4.3 3.5 - 5.5 mmol/L LAB CHEMISTRY METHOD 03/12/2025 6:15 PM EDT [facility] Chloride 105 96 - 110 mmol/L LAB CHEMISTRY METHOD 03/12/2025 6:15 PM EDT [facility] CO2 28 21 - 32 mmol/L LAB CHEMISTRY METHOD 03/12/2025 6:15 PM [facility] Anion Gap 6 3 - 11 LAB CHEMISTRY METHOD 03/12/2025 6:15 PM [facility] Glucose 83 70 - 100 mg/dL LAB CHEMISTRY METHOD 03/12/2025 6:15 PM [facility] BUN 15 5 - 25 mg/dL LAB CHEMISTRY METHOD 03/12/2025 6:15 PM [facility] Creatinine 0.78 0.50 - 1.10 mg/dL LAB CHEMISTRY METHOD 03/12/2025 6:15 PM [facility] eGFR 96 >=60 mL/min/1. 73m2 LAB CHEMISTRY METHOD 03/12/2025 6:15 PM [facility] Comment:Calculation based on the Chronic Kidney Disease Epidemiology Collaboration (CKD-EPI) equation refit without adjustment for race. BUN/Creatinine Ratio 19.2 LAB CHEMISTRY METHOD 03/12/2025 6:15 PM [facility] Calcium 9.2 8.5 - 10.5 mg/dL LAB CHEMISTRY METHOD 03/12/2025 6:15 PM [facility] AST (SGOT) 19 10 - 42 unit/L LAB CHEMISTRY METHOD 03/12/2025 6:15 PM [facility] ALT (SGPT) 32 10 - 60 unit/L LAB CHEMISTRY METHOD 03/12/2025 6:15 PM [facility] Alkaline Phosphatase 79 42 - 121 unit/L LAB CHEMISTRY METHOD 03/12/2025 6:15 PM [facility] Total Protein 6.6 6.0 - 8.0 g/dL LAB CHEMISTRY METHOD 03/12/2025 6:15 PM [facility] Albumin 3.6 3.2 - 5.0 g/dL LAB CHEMISTRY METHOD 03/12/2025 6:15 PM [facility] Total Bilirubin 0.4 0.0 - 1.4 mg/dL LAB CHEMISTRY METHOD 03/12/2025 6:15 PM EDT [facility] ([facility] Blood Venous blood specimen / Unknown Venipuncture / Unknown 03/12/2025 1:15 PM EDT 03/12/2025 1:15 PM EDT Krissy PERALTA LAB BLOOD ORDERABLES Final Re sult [facility] [address] [place] [address], [place] [phone] * External Mammogram Report (01/11/2025) Anatomical Region Laterality Modality Mammography Provider [facility] BI PROCEDURES Final Result * Pap smear (11/09/2023) 11/09/2023 Narrative HISTORICAL TESTING LAB RESULTING AGENCY - 11/16/2023 11:51 AM EST [id number] THINPREP PAP, IMAGED: NEGATIVE FOR SQUAMOUS INTRAEPITHELIAL LESION AND MALIGNANCY . DRE LEES(ASCP) (CASE ELECTRONICALLY SIGNED 11 16 2023) RESULT OF APTIMA HIGH RISK HPV ASSAY: HIGH RISK HPV: NEGATIVE (SEROTYPES 16,18,31,33,35,39,45,51,52,56,58,59,66,68) COMPLETED ON 2023-11-11 ADEQUACY: SATISFACTORY ENDOCERVICAL/TRANSFORMATION ZONE COMPONENT PRESENT. SOURCE: THINPREP PAP HPV ANY DX: REFLEX 16 AND 18, CERVICAL, IMAGED CLINICAL INFORMATION: HPV ANY DIAGNOSIS. PAP HX NEGATIVE, [Z01.419] Lyn Harrison CNM LAB CYTOLOGY ORDERABLES Final R esult HISTORICAL TESTING LAB RESULTING AGENCY from Last 3 Months or Most Recently Relevant to Health Maintenance Insurance [facility] Care Teams Supervisor [employer] Relationship Specialty Start Date End Date Nora Gomez MD [address] [place] [address] PCP - General Internal Medicine 11/17/99
--- NOTE | 2025-05-14 09:10 | A.OFFVIS_ITS ---
Intake Visit Reasons: LT. Eye vision loss Allergies dinoprostone (Dinoprostone) Adverse Reaction (Mild, Verified 01/10/24 10:05) VOMITING HPI Comments Details: 44 y/o RH woman with anxiety disorder, factor V Leidin mutation, s/p cervical spine fusion in 2017, RLS, h/o optic neuritis, trigeminal neuropathy pain, probably demylinating disease, and migraine.??She was having new symptoms of episodic dizziness, which was a feeling of whole body buzzing, confusion, and her body jerked during it. Episodes lasted for about 30 seconds and were happening about twice a week with no known trigger. She c/o an episode of blurred vision in left eye a few days ago. It was like a curtain came over and 3/4 of vision was gone. It lasted for a few minutes. There was no other symptom with it. She saw her eye doctor and no significant eye issue was noted. She had a carotid US that revealed midly high conduction velocities in left eye and now she was scheduled to have a CTA. [facility] Medical History (Updated 05/14/25 @ 09:24 by Jackie Fernandez MD) Complex partial seizure disorder Paresthesia of skin Demyelinating disease of central nervous system, unspecified Optic neuritis Anxiety Migraine RLS (restless legs syndrome) Obstructive sleep apnea Obesity Review of Systems Const Details: Constitutional:?No fever, chills, fatigue, weight loss, or night sweats. HEENT:?No headache, vision changes, hearing loss, nasal congestion, sore throat. Neurological:?No dizziness, syncope, seizures, numbness, tingling, weakness, t remors, memory loss. Psychiatric:?No anxiety, depression, mood swings, sleep disturbance, or hallucinations. Endocrine:?No heat/cold intolerance, polydipsia, polyuria, or hair/skin changes. Hematologic/Lymphatic:?No easy bruising, bleeding, or lymphadenopathy. Integumentary (Skin):?No rash, lesions, itching, or color changes. ? Physical Exam Neuro Other: Mental Status: Alert and oriented to person, place, and time. Normal attention. Normal spontaneous speech, fluency, and comprehension. No obvious issues with mood and memory. Affect is appropriate. Cranial Nerves: CN II: Visual coronado full to confrontation, visual acuity intact. CN III, IV, : Pupils equal, round, reactive to light and accommodation. Extraocular movements are normal. CN V: Facial sensation is normal. CN VII: Facial movements symmetrical. CN VIII: Hearing intact to bedside conversation is normal. CN IX, X: Palate elevates symmetrically. CN XI: Shoulder shrug and head turn symmetrical. CN XII: Tongue midline without atrophy or fasciculations. Motor: Bulk and tone normal in all extremities. No significant muscle weakness in arms and legs. No drift. Reflexes: Deep tendon reflexes 2+ and symmetric. Plantar response down-going bilaterally. Coordination: [id number] and [id number] testing normal. No dysmetria. Gait and Station: No obvious gait abnormality. No ataxia or instability. Sensory: Intact to light touch, pinprick, and vibration. Romberg is negative. Extrapyramidal: Full facial expressions and blinking. No rigidity. Movements are appropriate with no tremor or abnormality. Speech: Normal; no dysarthria or tremor. Assessment & Plan Assessment & Plan (1) Complex partial seizure disorder: Comment: Meds tried for headaches: Topiramate, Propranolol, Sumatriptan, verapamil, Emgality EEG at off in March 2025:WNL [place] brain [place] [facility] [place]: minimal WM changes, no change MRI brain brain WO at [facility] in Aug 2020: minimal WM changes MRI brain WWO at [facility] in May 2019: No change from the previous one MRI in 2018. A few very small WM hyperintensities, non specific CSF analysis at [facility] in Jul 2018: WBCs 0, RBCs 0, Glu 55, Pro 31, IgG ind: WNL, OCBs none MRI brain WO at [facility] in Jun 2018: Minimal punctate WM hyperintensities on sagittal FLAIR EMG/NCS UEs at office in Jun 2018: WNLPSG at Sleep center in [place] in 2018: OK (as per pt). Code(s): G40.209 - Localization-related (focal) (partial) symptomatic epilepsy and epileptic syndromes with complex partial seizures, not intractable, without status epilepticus Category: Medical (2) TIA (transient ischemic attack): Code(s): G45.9 - Transient cerebral ischemic attack, unspecified Category: Medical Plan Impression: 1. Recent episode of blurred or loss of vision left eye for few minutes. Differential diagnosis would include transient ischemic attack versus ocular migraine. She already had an ultrasound that revealed mildly elevated conduction velocity in left carotid artery and she is scheduled to have a CTA. In the meantime she has restarted taking Eliquis and was also taking baby aspirin daily 2. Possible complex partial seizure disorder though these symptoms were not happening anymore. She said that she had 48 hour ambulatory EEG for which I was not able to find results. We would look into it. Recommendations: 1. CTA of brain and neck as schedule 2. I am not sure if both Eliquis and aspirin or needed at this time but that dizzy and can be made after CTA. 3. I would look into her 48 hour ambulatory EEG testing Orders: Orders Factor V Leiden Today G45.9 - Transient cerebral ischemic attack, unspecified Coding Level of Care Code Est Pt Level 4 (29092) Diagnoses Complex partial seizure disorder G40.209 TIA (transient ischemic attack) G45.9
== END 2025-05-14 10:21 | disposition home or self-care (01) ==
LOC: HO.HSM 08:43
PROVIDERS: PCP Internal Medicine; Visit Provider Psychiatry & Neurology Neurology
DX: G40.209 Localization-related (focal) (partial) symptomatic epilepsy and epileptic syndromes with complex partial seizures, not intractable, without status epilepticus (principal); G45.9 Transient cerebral ischemic attack, unspecified
CPT/HCPCS: 99214

== ENCOUNTER 2025-10-15 13:47 | Outpatient (AMB) | payer OTHER, SELFPAY ==
[2025-10-15 14:18] VITALS: BMI 36.0
--- NOTE | 2025-10-15 14:18 | A.PHYSOV_ITS ---
Vital Signs 10/15/25 14:18 Height 5 ft 2 in Weight 197 lb BMI 36.0 Intake Visit Reasons: back & neck pain Intake Note: Patient is a 45 year old female here today with back and neck pain. Patient is here for a follow up from SI joint injection done on 08/11/25. Expanded Duty Dental Assistant Required: No Allergies dinoprostone (Dinoprostone) Adverse Reaction (Mild, Verified 10/15/25 14:20) VOMITING HPI Comments Details: History of Present Illness The patient is a 45-year-old female presenting for an evaluation of chronic neck and back pain. She has a history of left sacroiliac (SI) joint pain and received an injection on August 10 of the previous year, which provided relief for a couple of months. The pain has now returned and she describes it as worse and excruciating. Her last lumbar spine MRI was in 2021. The patient also reports chronic neck pain in the same location as before her prior surgeries. She underwent a C5-7 fusion in 2016, followed by a discectomy about two years later. She had a neck x-ray in 2021 and reports a more recent x-ray was done by her primary care provider last month. She has undergone physical therapy in the past but has not done any recently. Her pain level today as 05/10. Patient is requesting updated MRI of the lumbar spine. Pain Description - Location: The patient reports neck and low back pain. - Character and Radiation: The low back pain is primarily on the left side, though sometimes bilateral, and radiates down the left leg to the foot, with associated groin pain. - Character and Radiation: The neck pain is in the same location as her pre- surgical pain and radiates down her arm. - Severity: The returning low back pain is described as worse than before and excruciating. - Exacerbating Factors: Back pain is worsened by bending backward and forward. Procedure: Left SI joint injection 08/11/2024 50% reduction of her pain Results - Imaging: A previous lumbar spine MRI from 2021 was noted. - Imaging: A previous neck X-ray from 2021 was noted. - Imaging: A recent neck X-ray was reportedly performed last month through her primary care provider. COUNT INCLUDES THE [facility] Medical History (Updated 10/15/25 @ 17:14 by KATHRYN Ryan) Complex partial seizure disorder Paresthesia of skin Demyelinating disease of central nervous system, unspecified Optic neuritis Anxiety Migraine RLS (restless legs syndrome) Obstructive sleep apnea Obesity Social History (Updated 10/15/25 @ 14:21 by Clau Mari MA) Alcohol intake: current Alcohol intake frequency: does not drink Patient Tobacco Use Status: Never used Tobacco Review of Systems Narrative Review of Systems - Musculoskeletal: Reports neck and back pain. - Neurological: Reports pain radiating down the left leg to the foot. - Genitourinary: Reports occasional groin pain. - Psychological: Reports claustrophobia requiring medication for MRIs. Physical Exam Exam Exam: Physical Exam - Back: Pain is elicited with lumbar extension. - Back: Lumbar flexion causes back and leg pain with a pulling sensation. - Neurologic: Left straight leg raise is positive for back pain. - Neurologic: Right straight leg raise is positive for pain, but less than the left side. - Neurologic: Motor strength in the lower extremities is grossly intact bilaterally. - Neurologic: Sensation to touch appears symmetric in the lower extremities. Vital Signs: BMI result Body Mass Index 36.0 Assessment & Plan Assessment & Plan (1) Lumbar radiculopathy: Code(s): M54.16 - Radiculopathy, lumbar region Category: Medical (2) Lumbar spondylosis: Code(s): M47.816 - Spondylosis without myelopathy or radiculopathy, lumbar region Category: Medical Plan Pain Management - Affect: The patient reports she is doing well aside from the pain. - Analgesia: A left SI joint injection provided good relief for a couple of months, but the pain has returned and is now worse. - Activities of Daily Living: Not explicitly discussed, but the pain is described as excruciating. Plan Patient was informed and verbally consented to the use of an ambient scribe for clinic note documentation during this visit. 1. Low Back Pain With Left-Sided Radiculopathy The patient's symptoms are consistent with left sacroiliac joint arthropathy, given the location of her pain and temporary relief from a prior SI joint injection. An MRI of the lumbar spine will be ordered to further evaluate the etiology of her pain. The patient will be prescribed Ativan 1mg, one pill, to take before the MRI due to claustrophobia. She will follow up after the MRI to review the results and discuss further treatment, which may include another injection or a surgical consultation. 2. Muscle Spasm Of Back To manage associated muscle spasms, the patient will be prescribed tizanidine 4 mg twice daily. 3. Chronic Neck Pain Although the patient reports chronic neck pain status post-cervical fusion and discectomy, she has elected to focus on her low back pain at this visit. The option to order a cervical spine MRI was discussed and deferred. Discussion Notes I discussed with the patient that her recurrent, worsening left-sided low back pain is likely due to sacroiliac joint arthritis, especially given the temporary relief she experienced from her last injection. We reviewed treatment options, including repeating the SI joint injection for temporary relief or considering a surgical fusion for a more permanent solution. We agreed to proceed with updating her imaging to better assess the situation. I explained that while insurance carriers often require recent physical therapy for MRI approval, we can request authorization given her extensive treatment history. The patient chose to focus on her low back pain and opted for a lumbar spine MRI at this time. Due to her claustrophobia, I will prescribe a single dose of Ativan to be taken prior to the scan, and she understands she will need a transit mixer driver. I will also prescribe tizanidine twice daily for muscle relaxation. The plan is to have her return for a follow-up visit after the MRI is completed to review the findings and decide on the next steps. Patient Instructions - An MRI of your lower back will be ordered. - A prescription for Ativan has been sent to your pharmacy. - Please take one Ativan pill before your MRI appointment to help with your fear of enclosed spaces (claustrophobia). - You must arrange for someone to drive you to and from your MRI appointment after taking Ativan. - A prescription for a muscle relaxer, tizanidine 4 mg, has also been sent. - You may take the tizanidine up to twice a day as needed for muscle pain. - Please schedule a follow-up appointment after your MRI is complete to discuss the results. Orders: Orders MR lumbar spine wo con Today M51.16 - Intervertebral disc disorders with radiculopathy, lumbar region Medications: New tizanidine 4 mg PO BID PRN 60 caps 6RF muscle spasticity 30 days M47.816 - Spondylosis without myelopathy or radiculopathy, lumbar region, M54.16 - Radiculopathy, lumbar region lorazepam (Ativan) 1 po, 1 hour prior to MRI 1 mg PO DAILY PRN 1 tab 0RF anxiety F40.240 - Claustrophobia Coding Level of Care Code Est Pt Level 4 (78788) Diagnoses Lumbar radiculopathy M54.16 Lumbar spondylosis M47.816
--- OUTSIDE RECORDS SUMMARY | 2025-10-15 20:01 | XMS_ITS | Clinical Summary ---
Author Organization [address] Address [address] [place] [phone] Phone Care Team Providers Care Mat Puncher Name Role Phone Nora Gomez MD Primary Care Provider [phone] Allergies Active Allergy Reactions Criticality Noted Date Comments Dinoprostone Swelling 05/17/2006 Medications levonorgestreL (MIRENA) 21 mcg/24 hours (8 yrs) 52 mg IUD 1 Device (1 each total) by intrauterine route. Active albuterol HFA (PROAIR HFA ; PROVENTIL HFA ; VENTOLIN HFA) 90 mcg/actuation inhaler INHALE 2 PUFFS EVERY 4 TO 6 HOURS NEEDED FOR SHORTNESS OF BREATH OR FOR WHEEZE 5 Active omeprazole (PriLOSEC) [address] capsule Take 1 capsule (20 mg total) by mouth 1 (one) time each day before breakfast. 90 capsule 1 5 Active escitalopram (LEXAPRO) 20 mg tablet Take 1 tablet (20 mg total) by mouth 1 (one) time each day. 90 tablet 1 5 Active lisinopriL (PRINIVIL,ZEST RIL) 5 mg tablet Take 1 tablet (5 mg total) by mouth at bedtime. 90 tablet 1 5 Active Eliquis 2.5 mg tablet TAKE 1 TABLET BY MOUTH TWICE A DAY 60 tablet 3 5 Active Wegovy 1 mg/0.5 mL injection pen PINA BARKLEY 5 Active gabapentin (NEURONTIN) 100 mg capsule Take 3 capsules (300 mg total) by mouth at bedtime AND 1 capsule (100 mg total) 1 (one) time each day in the morning AND 1 capsule (100 mg total) 1 (one) time each day with lunch. 90 each 5 Active cloNIDine (CATAPRES) 0.1 mg tablet Take 0.5 tablets (0.05 mg total) by mouth. 4 025 Discontin ued(Thera py completed ) Wegovy 0.25 mg/0.5 mL injection pen PINA BARKLEY 5 025 Discontin ued(Thera py completed ) predniSONE (DELTASONE) 20 mg tablet Take 3 tabs (60mg) daily for 3 days, then take 2 tabs (40mg) daily for 3 days, then take 1 tab (20mg) daily for 3 days. 18 tablet 5 025 Discontin ued(Thera py completed ) tiZANidine (ZANAFLEX) 4 mg tablet Take 1 tablet (4 mg total) by mouth 3 (three) times a day if needed for muscle spasms. 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 Singleton, 12/30/21) COVID-19 virus infection 10/04/2020 Essential hypertension 08/14/2020 Demyelinating disease of guru tral nervous system, unspecified 08/12/2020 Optic neuritis 05/10/2019 Venous insufficiency of both lower extremities 0 02/09/2019 Prothrombin gene mutation 08/17/2018 Overview (04/18/2025): . s/p left renal vein [...] repeat co-testing 12 months. Depression, major, recurrent 01/26/2014 Migraine 05/25/2006 Overview (04/18/2025): Dr. Fernandez Other chronic sinusitis 05/25/2006 Resolved Problems Problem Noted Date Diagnosed Date Resolved Date Numbness 11/21/2018 05/01/2025 Overview (04/18/2025): Left sided body numbness, sees neurology Encounters Date Type Department Care Team Description 09/21/2025 3:19 PM EST - 09/21/2025 11:59 PM EST Hospital Encounter [address] [phone] Cervical spondylosis Discharge Disposition: Home or Self Care 09/21/2025 2:45 PM EST Office Visit Adult Medicine [address] [phone] Krissy Del Toro PA Cervical spondylosis (Primary Dx); Essential hypertension 09/21/2025 Results Follow-Up [address] [phone] Krissy Del Toro PA 09/14/2025 1:30 PM EST Office Visit [address] [phone] Nora Gomez MD Cervical spondylosis (Primary Dx); Cervical disc herniation; Essential hypertension; Gastroesophageal reflux disease without esophagitis 08/28/2025 Results Follow-Up [address] [phone] Nora Gomez MD from Last 3 Months Immunizations Immunization Administration Dates Next Due Influenza trivalent, with pr eservative (Fluzone; Afluria) 6mo and older 09/10/2021,07/28/2020,10/12/2017 [employer] SARS-CoV-2 COVID-19, mRNA, LNP-S, preservative free 11/27/2020,11/06/2020 [...] (gastroesophageal reflux disease) 4 Factor V deficiency (CMS/HCC V24, CMS/HCC V28) 08/17/2018 Asymptomatic, her brother wa s also labeled with the coagulopathy. Gallstones 10/19/2018 Anxiety 05/25/2006 Cervical disc herniation 02/04/2017 : C5-6, C6-7 anterior discectomy and fusion (Dr. Forte) Depression, major, recurrent (CMS/HCC V24) 01/26/2014 Migraine 05/25/2006 Dr. Fernandez Obesity (BMI 30-39.9) 01/21/2018 Snoring 07/13/201807/2018 Home Slee p Study did not reveal sleep apnea. 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, unspecified ([facility] V24, [facility] V28) 08/12/2020 Renal vein thrombosis ([facility] V24, [facility] V28) 12/23/2020 : x2, Left, on eliquis [...] drink = 0.6 oz pur e alcohol) Housing Instability Answer Date Recorde d Are you worried that in the next 2 months you may not have stable housing? No 09/14/2025 Food Access & Nutrition Answer Date Rec orded Do you have access to a vari ety of food including fruits and vegetables? Yes 09/14/2025 Access to Healthcare Answer Date Record ed Within the last 3 months, ho w many times did you visit the emergency department for your medical care? 0 09/14/2025 Health Literacy Answer Date Recorded How often do you need to hav e someone help you when you read instructions, pamphlets, or other written material from your doctor or pharmacy? Never 09/14/2025 Caregiver: How often do you need to have someone help you when you read instructions, pamphlets, or other written material from your doctor or pharmacy? Not on file 09/14/2025 Financial Risk Answer Date Recorded How hard is it for you to pa y for the very basics like food, housing, medical care, and air conditioning / heating? Not very hard 09/14/2025 Transportation Answer Date Recorded Has the lack of transportati on kept you from meetings, work, or from getting things needed for daily living? No Has the lack of transportati on kept you from medical appointments or from getting medications? No 09/14/2025 Social Isolation Answer Date Recorded How often do you feel lonely or isolated from th ose around you? Never 09/14/2025 Food Risk Answer Date Recorded Within the past 12 months we worried whether our food would run out before we got money to buy more. Never true 09/14/2025 Within the past 12 months th e food we bought just didn't last and we didn't have money to get more. Never true 09/14/2025 Dependent Care Answer Date Recorded Do you need help finding or paying for care for your loved ones. For example, children librarian or elderly care for an older adult? No 09/14/2025 Education Answer Date Recorded Do you think completing more education or training, like finishing a GED, going to college, or learning a trade, would be helpful for you? No 09/14/2025 Employment and Income Answer Date Recor ded During the last four weeks, have you been actively looking for work? No 09/14/2025 Living Situation Answer Date Recorded What is your living situation? Unrecognized valu e 09/14/2025 Comments Unknown Sex and Gender Information Value Date Recorded Sex Assigned at Female 05/09/2025 10:42 AM EDT Legal Sex Female 4:01 PM EST Gender Identity Female 05/09/2025 10:42 AM EDT Sexual Orientation Straight 05/09/2025 10 :42 AM EDT Last Filed Vital Signs Vital Sign Reading Time Taken Comments Blood Pressure 141/108 09/21/2025 2:57 PM EST A 5 min bp Pulse 103 09/21/2025 2:57 PM EST Temperature 36.6 C (97.9 F) 09/21/2025 2:46 PM EST Respiratory Rate 16 09/21/2025 2:46 PM EST Oxygen Saturation 97% 09/21/2025 2:46 PM EST Inhaled Oxygen Concentration - - Weight 91.2 kg (201 lb) 09/21/2025 2:46 PM EST Height 157.5 cm (5' 2 ) 09/21/2025 2:46 PM EST Body Mass Index 36.76 09/21/2025 2:46 PM EST Plan of Treatment Upcoming Encounters Date Type Department Care Team (Late st Contact Info) Description 11/05/2025 9:30 AM EST Office Visit [place] [facility] [place] - [address] [phone] Krissy Del Toro PA [address] [place] [phone] 12/06/2025 2:00 PM EST Office Visit Obstetrics and Gynecology - [address] [phone] Lyn Harrison CNM [address] [place] [address] Health Maintenance Due Date Last Done Comments Hepatitis B Vaccines (1 of 3 - 19+ 3-dose series) 1998 Hepatitis C Screening 10/10/2022 Colorectal Cancer Screening: Colonoscopy 01/31/2025 02/01/2024 COVID-19 Vaccine (3 - 2024-2 6 season) 2025 11/27/2020, 11/06/2020 Influenza Vaccine (#1) 2025 , 07/28/2020, 10/12/2017 Breast Cancer Screening 01/11/2026 01/11/2025 Hypertension/CHF/CAD Annual BMP Blood Test 03/12/2026 03/12/2025 Social Influencers of Health Screening 09/14/2026 09/14/2025 Cervical Cancer Screening: P ap Smear 11/09/2026 11/09/2023, 11/09/2023, 05/09/2019 DTaP,Tdap,and Td Vaccines (4 - Td or Tdap) 09/13/2027 09/13/2017, 05/05/2017, 05/05/2007 Cholesterol Screening (Lipid Panel) 03/12/2030 03/12/2025, 04/28/2023 RSV Immunization Adult Patients (1 - 1-dose 75+ series) 2054 HIV Screening Completed 04/28/2023 Depression Screening Completed 09/14/2025 HIB Vaccines Aged Out No longer eligi [...] Procedure Name Priority Date/Time Associated Diagnosis Comments XR CERVICAL SPINE 4-5 VIEWS Routine 09/21/2025 3:25 PM EST Cervical spondylosis COMPREHENSIVE METABOLIC PANEL Routine 03/12/2025 1:15 PM EDT Gastroesophageal reflux disease, unspecified whether esophagitis present Essential hypertension Severe episode of recurrent major depressive disorder, without psychotic features ([facility] V24, [facility] V28) Colon cancer screening Elevated random blood glucose level LIPID PANEL WITH REFLEX TO DIRECT LDL Routine 03/12/2025 1:15 PM EDT Lipid screening EXTERNAL MAMMOGRAM REPORT 01/11/2025 EXTERNAL COLONOSCOPY REPORT Routine 02/01/2024 9:17 AM EDT PAP SMEAR Routine 11/09/2023 from Last 3 Months or Most Recently Relevant to Health Maintenance Results * XR Cervical Spine 4-5 Views (09/21/2025 3:25 PM EST) Anatomical Region Laterality Modality Spine, C-spine Radiographic Aretha ging 09/21/2025 4:41 PM EST Impressions 09/21/2025 4:43 PM EST Status post C5-7 anterior spinal fusion with bony bridging. No acute fracture or dislocation. -------- FINAL REPORT -------- Dictated By: Jasmyne Bowman Dictated Date: 09/21/2025 16:41 ET Assigned Physician: Jasmyne Bowman Reviewed and Electronically Signed By: Jasmyne Bowman Signed Date: 09/21/2025 16:43 ET Workstation ID: [id number] Transcribed By: Self Edit Transcribed Date: 09/21/2025 16:41 ET Narrative 09/21/2025 4:43 PM EST HISTORY: pain TECHNIQUE: 4 views of the cervical spine COMPARISON: Cervical spine radiograph from 07/10/2022 FINDINGS: The cervical spine is visualized from C1-C7. Vertebral body height is maintained. The patient is status post C5-7 anterior spinal fusion. Bony bridging is identified. No perihardware lucencies or periprosthetic fractures are identified. The cervical alignment is maintained without spondylolisthesis. No acute fracture or dislocation is seen. There is no prevertebral soft tissue swelling. Procedure Note Jasmyne Bowman MD - 09/21/2025 HISTORY: pain TECHNIQUE: 4 views of the cervical spine COMPARISON: Cervical spine radiograph from 07/10/2022 FINDINGS: The cervical spine is visualized from C1-C7. Vertebral body height ismaintained. The patient is status post C5-7 anterior spinal fusion. Bonybridging is identified. No perihardware lucencies or periprostheticfractures are identified. The cervical alignment is maintained withoutspondylolisthesis. No acute fracture or dislocation is seen. There is noprevertebral soft tissue swelling. IMPRESSION: Status post C5-7 anterior spinal fusion with bony bridging. No acutefracture or dislocation. -------- FINAL REPORT -------- Dictated By: Jasmyne Bowman Dictated Date: 09/21/2025 16:41 ET Assigned Physician: Jasmyne Bowman Reviewed and Electronically Signed By: Jasmyne Bowman Signed Date: 09/21/2025 16:43 ET Workstation ID: [id number] Transcribed By: Self Edit Transcribed Date: 09/21/2025 16:41 ET us Krissy PERALTA IMG XR PROCEDURES Final Resul t * (ABNORMAL) Lipid panel with reflex to direct LDL (03/12/2025 1:15 PM EDT) Cholesterol 208(H) 0 - 200 mg/dL LAB CHEMISTRY METHOD 03/12/2025 6:15 PM EDT [facility] Triglycerides 117 0 - 150 mg/dL LAB CHEMISTRY METHOD 03/12/2025 6:15 PM EDT [facility] HDL 58 >=40 mg/dL LAB CHEMISTRY METHOD 03/12/2025 6:15 PM EDT [facility] LDL Calculated 127(H) 0 - 100 mg/dL LAB CHEMISTRY METHOD 03/12/2025 6:15 PM EDT [facility] VLDL Cholesterol Sergio 23.4 mg/dL LAB CHEMISTRY METHOD 03/12/2025 6:15 PM EDT [facility] Non HDL Chol. (LDL+VLDL) 150(H) <145 mg/dL LAB CHEMISTRY METHOD 03/12/2025 6:15 PM EDT [facility] Chol/HDL Ratio 3.6 0.0 - 4.4 LAB CHEMISTRY METHOD 03/12/2025 6:15 PM EDT [facility] Blood Venous blood specimen / Unknown Venipuncture / Unknown 03/12/2025 1:15 PM EDT 03/12/2025 1:15 PM EDT us Krissy PERALTA LAB BLOOD ORDERABLES Final Re sult [facility] [address] [place] [address], [place] [phone] * Comprehensive metabolic panel (03/12/2025 1:15 PM EDT) Sodium 139 133 - 145 mmol/L LAB CHEMISTRY METHOD 03/12/2025 6:15 PM [facility] Potassium 4.3 3.5 - 5.5 mmol/L LAB CHEMISTRY METHOD 03/12/2025 6:15 PM [facility] Chloride 105 96 - 110 mmol/L LAB CHEMISTRY METHOD 03/12/2025 6:15 PM [facility] CO2 28 21 - 32 mmol/L LAB CHEMISTRY METHOD 03/12/2025 6:15 PM [facility] Anion Gap 6 3 - 11 LAB CHEMISTRY METHOD 03/12/2025 6:15 PM [facility] Glucose 83 70 - 100 mg/dL LAB CHEMISTRY METHOD 03/12/2025 6:15 PM [facility] BUN 15 5 - 25 mg/dL LAB CHEMISTRY METHOD 03/12/2025 6:15 PM [facility] Creatinine 0.78 0.50 - 1.10 mg/dL LAB CHEMISTRY METHOD 03/12/2025 6:15 PM [facility] eGFR 96 >=60 mL/min/1. 73m2 LAB CHEMISTRY METHOD 03/12/2025 6:15 PM [facility] Comment:Calculation based on the Chronic Kidney Disease Epidemiology Collaboration (CKD-EPI) equation refit without adjustment for race. BUN/Creatinine Ratio 19.2 LAB CHEMISTRY METHOD 03/12/2025 6:15 PM [facility] Calcium 9.2 8.5 - 10.5 mg/dL LAB CHEMISTRY METHOD 03/12/2025 6:15 PM [facility] AST (SGOT) 19 10 - 42 unit/L LAB CHEMISTRY METHOD 03/12/2025 6:15 PM [facility] ALT (SGPT) 32 10 - 60 unit/L LAB CHEMISTRY METHOD 03/12/2025 6:15 PM EDT [facility] Alkaline Phosphatase 79 42 - 121 unit/L LAB CHEMISTRY METHOD 03/12/2025 6:15 PM EDT [facility] Total Protein 6.6 6.0 - 8.0 g/dL LAB CHEMISTRY METHOD 03/12/2025 6:15 PM EDT [facility] Albumin 3.6 3.2 - 5.0 g/dL LAB CHEMISTRY METHOD 03/12/2025 6:15 PM EDT [facility] Total Bilirubin 0.4 0.0 - 1.4 mg/dL LAB CHEMISTRY METHOD 03/12/2025 6:15 PM EDT [facility] Blood Venous blood specimen / Unknown Venipuncture / Unknown 03/12/2025 1:15 PM EDT 03/12/2025 1:15 PM EDT Krissy PERALTA LAB BLOOD ORDERABLES Final Re sult [facility] [address] [place] [address], * External Mammogram Report (01/11/2025) Anatomical Region Laterality Modality Mammography Provider [facility] IMG BI PROCEDURES Final Result * External Colonoscopy Report (02/01/2024 9:17 AM EDT) Anatomical Region Laterality Modality Endoscopy Historical Provider GI~PROCEDURE ORDERABLES F inal Result * Pap smear (11/09/2023) 11/09/2023 Narrative HISTORICAL TESTING LAB RESULTING AGENCY - 11/16/2023 11:51 AM EST [id number] THINPREP PAP, IMAGED: NEGATIVE FOR SQUAMOUS INTRAEPITHELIAL LESION AND MALIGNANCY . DRE LEES(ASCP) (CASE ELECTRONICALLY SIGNED 11 16 2023) RESULT OF APTIMA HIGH RISK HPV ASSAY: HIGH RISK HPV: NEGATIVE (SEROTYPES 16,18,31,33,35,39,45,51,52,56,58,59,66,68) COMPLETED ON 2023-11-11 ADEQUACY: SATISFACTORY ENDOCERVICAL/TRANSFORMATION ZONE COMPONENT PRESENT. SOURCE: THINPREP PAP HPV ANY DX: REFLEX 16 AND 18, CERVICAL, IMAGED CLINICAL INFORMATION: HPV ANY DIAGNOSIS. PAP HX NEGATIVE, [Z01.419] us Lyn Harrison [facility] CYTOLOGY ORDERABLES Final R esult HISTORICAL TESTING LAB RESULTING AGENCY from Last 3 Months or Most Recently Relevant to Health Maintenance Insurance [facility] Care Teams Mat Puncher Relationship Specialty Start Date End Date Nora Gomez MD [address] [place] [phone] PCP - General Internal Medicine 11/17/99
--- OUTSIDE RECORDS SUMMARY | 2025-10-15 20:01 | XMS_ITS | Clinical Summary ---
Author Organization [facility] Prior to 03/31/[address] [place] [phone] Care Team Providers Care Brine Tank Operator Name Role Phone Nora Gomez MD Primary Care Provider [phone] Allergies No known active allergies Medications Medication [...] 1997 Cervical Cancer Screening (Pap Smear) 2000 Colon Cancer Screening (Colonoscopy) 2024 COVID-19 Vaccine ( season) 2025 11/27/2020, 11/06/2020 Influenza Vaccine (#1) 2025 , 07/28/2020, 08/08/2018, Additional history exists DTap / Tdap / Td (4 - Td or Tdap) 09/13/2027 09/13/2017, 05/05/2017, 05/05/2007 Pneumococcal Vaccine Aged Out No long er eligible based on patient's age to complete this topic RSV Ped < 20 months Aged Out No longe r eligible based on patient's age to complete this topic Care Teams Brine Tank Operator Relationship Specialty Start Date End Date Nora Gomez MD PCP - General Internal Medicine 05/26/18
--- OUTSIDE RECORDS SUMMARY | 2025-10-15 20:01 | XMS_ITS | Encounter Summary ---
Author Organization [facility] Address [address] [place] [address] Care Team Providers Care Emergency Care Attendant Name Role Phone Nora Gomez MD Primary Care Provider [phone] Encounter Details Date Type Department Care Team ([facility] Contact Info) Description 09/21/2025 Results Follow-Up Adult Medicine [facility] [address] [place], [place] [phone] Krissy Del Toro PA [address] [place], [place] Social History Tobacco Use Types Packs/Day Years Used Date Smoking Tobacco: Never Smokeless Tobacco: Never Alcohol Use Standard Drinks/Week Comments Yes 0 [...] care for your loved ones. For example, children's librarian or elderly care for an older [...] Orientation Straight 05/09/2025 10 :42 AM EDT documented as of this encounter Plan of Treatment Upcoming Encounters Date Type Department Care Team (Late st Contact Info) Description 11/05/2025 9:30 AM EST Office Visit Adult Medicine [address] [phone] Krissy Del Toro PA [address] [place] [address] 12/06/2025 2:00 PM EST Office Visit Obstetrics and Gynecology - [address] [phone] Lyn Harrison [address] documented as of this encounter Visit Diagnoses Not on filedocumented in this encounter Additional Health Concerns Assessment Noted Time PHQ-9 Depression Total Score: 0 09/14/20 25 11:24 AM EST documented as of this encounter Care Teams Emergency Care Attendant Relationship Specialty Start Date End Date Nora Gomez MD [address] [place] [phone] PCP - General Internal Medicine 11/17/99 documented as of this encounter
== END 2025-10-15 14:43 | disposition home or self-care (01) ==
LOC: HO.HPHYS 13:48
PROVIDERS: PCP Internal Medicine; Visit Provider Physician Assistant
DX: M54.16 Radiculopathy, lumbar region (principal); M47.816 Spondylosis without myelopathy or radiculopathy, lumbar region
CPT/HCPCS: 99214